=== PATIENT | female | born 1945 | race Caucasian/White ===

== ENCOUNTER 2023-09-19 13:25 | Emergency (ER) | payer OTHER ==
[~2023-09-19] VITALS: Ht 162.6 cm; Wt 72.0 kg
[2023-09-19 13:28] VITALS: TEMP 98.8; O2SAT 96
[2023-09-19 16:04] LABS: BASOPHILS % 0.6 % (0.0-2.0); EOSINOPHILS % 1.9 % (0.0-5.0); HEMATOCRIT. 39.3 % (36.0-48.0); HEMOGLOBIN. 12.7 g/dL (12.0-16.0); LYMPHOCYTES % 17.1 % (20.0-50.0); MEAN CORPUSCULAR HGB CONC 32.3 g/dL (31.0-37.0); MEAN CORPUSCULAR VOLUME 89.7 fL (81.0-99.0); MEAN PLATELET VOLUME 8.7 fl (7.4-10.4); MONOCYTES % 7.4 % (2.0-8.0); PLATELET 181 x1000/uL (130-400); RED BLOOD CELL COUNT 4.38 mill/uL (4.2-5.4); RED CELL DISTRIBUTION WIDTH 14.3 % (11.6-14.6); WHITE BLOOD COUNT 7.5 x1000/uL (4.5-11.0)
[2023-09-19 16:20] LABS: ALANINE AMINOTRANSFERASE 17 IU/L (10-49); ALBUMIN 4.2 g/dL (3.2-4.8); ASPARTATE AMINOTRANSFERASE 12 IU/L (<34); BILIRUBIN TOTAL 0.4 mg/dL (0.1-1.0); CALCIUM 9.9 mg/dL (8.7-10.4); CARBON DIOXIDE 25 mEq/L (21-32); CHLORIDE 100 mEq/L (98-107); CREATININE 0.8 mg/dL (0.6-1.0); GLUCOSE 371 mg/dL (70-105); POTASSIUM 4.9 mEq/L (3.5-5.1); PROTEIN TOTAL 7.1 g/dL (6.0-8.3); SODIUM 133 mEq/L (136-145); TROPONIN I HIGH SENSITIVITY 4 ng/L (3.0-34); UREA NITROGEN BLOOD 18 mg/dL (9-23)
[2023-09-19] MEDS ORDERED: MECL-299 MT (20:08)
[2023-09-19] MEDS ORDERED: MECLIZINE 25MG TABLET PO ONE (20:15)
[2023-09-19] MEDS ORDERED: MECLIZINE 12.5MG TABLET PO NR (20:15)
[2023-09-19 20:16] VITALS: BP 164/93; PULSE 91; RESP 14
== END 2023-09-19 21:20 | disposition home or self-care (01) ==
LOC: ER 13:25
DX: R42 Dizziness and giddiness (principal); E11.9 Type 2 diabetes mellitus without complications; I10 Essential (primary) hypertension
CPT/HCPCS: 99284; 70450; 71045; 80053; 83880; 85025; 84484; 36415; J8597